=== PATIENT | male | born 1935 | race Caucasian/White ===

== ENCOUNTER 2017-01-02 21:38 | Emergency (ER) | payer OTHER ==
[~2017-01-02] VITALS: Ht 172.7 cm; Wt 80.6 kg
[~2017-01-02 21:38] MED LIST: ADVIL200 MG PO; ASPIRIN325 MG PO; DEXILANT30 MG PO; DOXYCYCLINE HY100 MG PO; ECOTRIN325 MG PO; FISH OIL 1,0001 EACH PO; FLONASE16 G1 BOTH NARES; HYCODAN SYRUP480 ML PO; HYDROCODON-ACE1 EAC7 PO; LO-DOSE ASPIRIN81 M1 PO; LOPRESSOR12.5 MG PO; LOPRESSOR25 MG PO; METAMUCIL FIBE3.4 GM PO; METOPROLOL SUCC25 MG PO; MIRALAX17 GM PO; MONTELUKAST SOD10 MG PO; PAROXETINE HCL10 MG PO; PLAVIX75 MG PO; PROAIR HFA8.5 GM IH; PROTONIX40 MG PO; QVAR 40 MCG IN7.3 GM IH; QVAR 80 MCG IN7.3 GM IH; SIMVASTATIN40 MG PO; TAMSULOSIN HCL0.4 MG PO; TYLENOL REGULA325 MG PO; VERAMYST10 GM BOTH NARES; VICODIN 5-3001 EACH PO; ZANTAC150 MG PO; Zocor PO; [UNRECOGNIZED DRUG - OTHER] BOTH EYES
[2017-01-02 22:50] LABS: HEMATOCRIT 40.1 % (38.0-50.0); MCH 31.1 PG (29.0-34.0); MCHC 34.2 G/DL (30.0-36.0); MCV 90.9 FL (86-99); MEAN PLAT.VOLUME 9.5 uM^3 (9.0-12.4); PLATELET COUNT 197 K/uL (156-360); RBC DIS.WIDTH-CV 12.8 % (11.8-14.6); RBC DIS.WIDTH-SD 42.5 % (39-53); RED BLOOD COUNT 4.41 M/uL (4.00-5.50); WHITE BLOOD COUNT 11.3 K/uL (4.1-10.2)
[2017-01-02 23:09] LABS: ADD MIUA? YES; BILIRUBIN NEGATIVE; BLOOD LARGE; COLOR AMBER ((YELLOW)); GLUCOSE (STRIP) NEGATIVE; KETONES 5; LEUKOCYTES NEGATIVE; NITRITE NEGATIVE; PROTEIN (STRIP) 100; SPECIFIC GRAVITY 1.025 (1.000-1.030)
[2017-01-02 23:15] LABS: CHLORIDE 103 mEq/L (99-109); POTASSIUM 3.9 mEq/L (3.7-5.4); SODIUM 138 mEq/L (136-147)
[2017-01-02 23:17] LABS: GLUCOSE 129 mg/dL (70-99)
[2017-01-02 23:18] LABS: ANION GAP 13 MEQ/L (2-14)
[2017-01-02 23:19] LABS: TOTAL BILIRUBIN 0.4 mg/dL (0.0-1.0)
[2017-01-02 23:21] LABS: ALKALINE PHOSPHATASE 60 IU/L (3-129); GFR ESTIMATE (CALCULATED) > 59 mL/min/
[2017-01-02 23:22] LABS: UREA NITROGEN (BUN) 21 mg/dL (9-23)
[2017-01-02 23:54] LABS: AMORPHOUS URATES CRYSTALS 1+; BACTERIA 2+ /HPF; CRYSTALS PRESENT; EPITHELIAL CELLS 1+ /HPF; MUCUS 1+ /LPF; RED BLOOD CELLS TNTC /HPF (0-5); UCUL ADDED? YES; WHITE BLOOD CELLS NONE SEEN /HPF (0-5)
[2017-01-03] MEDS ORDERED: NORCO 5/3251 TABLET PO (00:53)
[2017-01-03] MEDS ORDERED: ZOFRAN ODT4 MG PO (00:53)
[2017-01-03] MEDS ORDERED: FLOMAX0.4 MG PO (00:53)
[2017-01-03 01:25] VITALS: BP 112/75
== END 2017-01-03 01:26 | disposition home or self-care (01) ==
LOC: EME 21:38
DX: N20.1 Calculus of ureter (principal); R31.9 Hematuria, unspecified; J45.909 Unspecified asthma, uncomplicated; E78.5 Hyperlipidemia, unspecified; Z87.442 Personal history of urinary calculi; I25.2 Old myocardial infarction; K21.9 Gastro-esophageal reflux disease without esophagitis; Z86.73 Personal history of transient ischemic attack (TIA), and cerebral infarction without residual deficits; Z96.651 Presence of right artificial knee joint; Z79.82 Long term (current) use of aspirin; Z87.891 Personal history of nicotine dependence
CPT/HCPCS: 74177; 80053; 81003; 85027; 87086; 99281; 99283; J1885; J2405; J3010; J7030

== ENCOUNTER → 2017-01-07 | Outpatient (CLI) | payer MEDICARE, OTHER ==
[~2017-01-07] MED LIST changes: +FLOMAX0.4 MG PO; +NORCO 5/3251 TABLET PO; +ZOFRAN ODT4 MG PO
== END | disposition home or self-care (01) ==
LOC: CDC 10:41
DX: Z01.810 Encounter for preprocedural cardiovascular examination (principal); N20.1 Calculus of ureter
CPT/HCPCS: 93000

== ENCOUNTER 2017-03-19 10:26 | Emergency (ER) | payer OTHER ==
[~2017-03-19] VITALS: Ht 175.3 cm; Wt 81.4 kg
[2017-03-19 13:30] VITALS: BP 121/81
== END 2017-03-19 13:31 | disposition home or self-care (01) ==
LOC: EME 10:26
DX: S86.811A Strain of other muscle(s) and tendon(s) at lower leg level, right leg, initial encounter (principal); R26.2 Difficulty in walking, not elsewhere classified; Y93.01 Activity, walking, marching and hiking; E78.5 Hyperlipidemia, unspecified; J45.909 Unspecified asthma, uncomplicated; I25.2 Old myocardial infarction; Z96.651 Presence of right artificial knee joint; Z87.442 Personal history of urinary calculi; K21.9 Gastro-esophageal reflux disease without esophagitis; Z86.73 Personal history of transient ischemic attack (TIA), and cerebral infarction without residual deficits; Z79.82 Long term (current) use of aspirin; Z88.2 Allergy status to sulfonamides; Z87.891 Personal history of nicotine dependence; Z88.8 Allergy status to other drugs, medicaments and biological substances
CPT/HCPCS: 93971; 99281; 99284

== ENCOUNTER 2017-06-06 13:45 | Emergency (ER) | payer OTHER ==
[~2017-06-06] VITALS: Ht 175.3 cm; Wt 82.5 kg
[2017-06-06 14:16] LABS: HEMATOCRIT 39.6 % (38.0-50.0); HEMOGLOBIN 13.7 G/DL (12.5-16.6); MCH 31.1 PG (29.0-34.0); MCHC 34.6 G/DL (30.0-36.0); PLATELET COUNT 210 K/uL (156-360); RBC DIS.WIDTH-SD 42.7 % (39-53)
[2017-06-06 14:32] LABS: CHLORIDE 97 mEq/L (99-109); POTASSIUM 3.6 mEq/L (3.7-5.4); SODIUM 135 mEq/L (136-147)
[2017-06-06 14:34] LABS: GLUCOSE 78 mg/dL (70-99)
[2017-06-06 14:38] LABS: CREATININE 0.9 mg/dL (0.6-1.3); GFR ESTIMATE (CALCULATED) > 59 mL/min/ (58.99-99999)
[2017-06-06 14:39] LABS: UREA NITROGEN (BUN) 21 mg/dL (9-23)
[2017-06-06] MEDS ORDERED: PROVENTIL,2.5 MG/3 M IH (16:18)
[2017-06-06 17:23] VITALS: BP 116/63
== END 2017-06-06 17:25 | disposition home or self-care (01) ==
LOC: EME 13:45
DX: J45.901 Unspecified asthma with (acute) exacerbation (principal); I70.0 Atherosclerosis of aorta; I49.1 Atrial premature depolarization; R94.31 Abnormal electrocardiogram [ECG] [EKG]; K21.9 Gastro-esophageal reflux disease without esophagitis; E78.5 Hyperlipidemia, unspecified; I25.2 Old myocardial infarction; Z79.891 Long term (current) use of opiate analgesic; Z79.82 Long term (current) use of aspirin; Z79.51 Long term (current) use of inhaled steroids; Z87.891 Personal history of nicotine dependence; Z86.73 Personal history of transient ischemic attack (TIA), and cerebral infarction without residual deficits; Z87.442 Personal history of urinary calculi; Z96.651 Presence of right artificial knee joint; J30.2 Other seasonal allergic rhinitis; Z88.2 Allergy status to sulfonamides; Z88.0 Allergy status to penicillin; Z88.8 Allergy status to other drugs, medicaments and biological substances
CPT/HCPCS: 71046; 80048; 85027; 93005; 94640; 99281; 99284